=== PATIENT | male | born 1995 | race Caucasian/White ===

== ENCOUNTER 2018-10-23 04:15 | Emergency (ER) | payer SELFPAY ==
[~2018-10-23] VITALS: Ht 182.9 cm; Wt 78.0 kg
[2018-10-23] MEDS ORDERED: Morphine Sulfate 2mg/ml Inj(IV/IM USE ONLY) IM ONE (04:30)
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
[2018-10-23] MEDS ORDERED: Morphine Sulfate 4mg/ml Inj (IV USE ONLY) IVP ONE (05:30)
[2018-10-23] MEDS ORDERED: IBUPROFEN600 MG ORAL (05:58)
[2018-10-23] MEDS ORDERED: NORCO 5-325 TA1 EACH ORAL (05:58)
--- NOTE | 2018-10-23 05:58 | Diagnostic Imaging Report ---
EXAM: XR Left Clavicle Complete, 2 or More Views CLINICAL HISTORY: INJ TECHNIQUE: Frontal and lordotic views of the left clavicle. COMPARISON: No relevant prior studies available. FINDINGS: Bones/joints: Comminuted and superiorly angulated fracture through the mid aspect/distal third of the left clavicle. No dislocation. Soft tissues: Unremarkable. IMPRESSION: Comminuted and superiorly angulated fracture through the mid aspect/distal third of the left clavicle. <MYCVCSECTION> [employer] 10/23/18 06:03 Verify Receipt Verified receipt with [employer] for Keli on 10/23 06:03 (-07:00)
--- NOTE | 2018-10-23 06:01 | Diagnostic Imaging Report ---
EXAM: XR Left Shoulder Complete, 2 or More Views CLINICAL HISTORY: Trauma, clavicular fracture TECHNIQUE: Two or more views of the left shoulder. COMPARISON: No relevant prior studies available. FINDINGS: Bones/joints: Left clavicular fracture as described on separate clavicle x-ray report. No displaced proximal left humeral fracture or dislocation. The left humerus is maintained in internal rotation throughout the study. Normal acromioclavicular joint alignment. Soft tissues: Unremarkable. IMPRESSION: 1. No displaced proximal left humeral fracture or dislocation. The left humerus is maintained in internal rotation throughout the exam. Correlate with range of motion. 2. Left clavicular fracture as described on separate x-ray report.
[2018-10-23 06:15] VITALS: BP 141/74
--- NOTE | 2018-10-23 06:40 | NUR ---
ER DISCHARGE NOTE: Patient is cleared to be discharged per ERMD, pt is aox4, on room air, with stable vital signs. pt was given dc and prescription instructions, pt was able to verbalize understanding, pt id band removed without complications. pt is able to ambulate with steady gait. pt took all belongings. pt given splint and sat with pt and mother to go over d/c instructions and medication administration very extensively, wrote doen med times for pt, mother to drive, nad noted during d/c.
[2018-10-23 06:55] VITALS: BP 146/91
== END 2018-10-23 06:55 | disposition home or self-care (01) ==
LOC: EMR 04:39
DX: S42.022A Displaced fracture of shaft of left clavicle, initial encounter for closed fracture (principal); W18.39XA Other fall on same level, initial encounter; Y92.410 Unspecified street and highway as the place of occurrence of the external cause
CPT/HCPCS: 73000; 73030; 96372; 96374; 99284; J2270